=== PATIENT | female | born 1975 | race Two or more races ===

== ENCOUNTER 2018-04-09 22:45 | Inpatient (IN) | payer MEDICAID | END 2018-04-16 15:20 | disposition home or self-care (01) | LOC: ER 22:45 → TELE 04-10 11:22 → TELE-WESTW 04-10 13:08 | DX: K37 Unspecified appendicitis (principal); E11.65 Type 2 diabetes mellitus with hyperglycemia; N39.0 Urinary tract infection, site not specified; J06.9 Acute upper respiratory infection, unspecified; K57.90 Diverticulosis of intestine, part unspecified, without perforation or abscess without bleeding; B37.3 Candidiasis of vulva and vagina; E87.6 Hypokalemia; E86.0 Dehydration ==